=== PATIENT | male | born 1945 | race Caucasian/White ===

== ENCOUNTER 2017-05-21 06:48 | Day surgery (SDC) | payer OTHER ==
[~2017-05-21] VITALS: Ht 172.7 cm; Wt 96.3 kg
[~2017-05-21 06:48] MED LIST: ASPI-516 CHEW; HYDR12.56 PO; LISI40TA PO; MULT-65 PO; OMEP20TA93 PO; TOPI25TA7 PO
[2017-05-21] MEDS ORDERED: IOHEXOL 350 MG/ML 50 ML BTL (for Cath Lab) OTHER ONE (06:49)
[2017-05-21 07:30] VITALS: BP 128/73; PULSE 61; RESP 18; TEMP 98; O2SAT 98
[2017-05-21] MEDS ORDERED: CLOP75TA PO (07:42)
[2017-05-21] MEDS ORDERED: METO25TA3 PO (07:42)
[2017-05-21] MEDS ORDERED: ATOR40TA16 PO (07:42)
[2017-05-21] MEDS ORDERED: ASPI-147 PO (07:42)
[2017-05-21] MEDS ORDERED: AMLO10TA2 PO (07:42)
[2017-05-21] MEDS ORDERED: NS 1000P @30 MLS/HR (KVO) IV SCH (07:45)
[2017-05-21 08:09] LABS: AUTOMATED NEUTROPHIL # 4.7 TH/MM3 (1.8-7.7); BASOPHIL # 0.1 TH/MM3 (0-0.2); BASOPHIL % 0.9 % (0.0-2.0); EOSINOPHIL # 0.2 TH/MM3 (0-0.4); EOSINOPHIL % 3.2 % (0.0-4.0); HEMATOCRIT 45.6 % (39.0-51.0); HEMOGLOBIN 15.2 GM/DL (13.0-17.0); LYMPH % 21.7 % (9.0-44.0); LYMPHOCYTE # 1.6 TH/MM3 (1.0-4.8); MEAN CORPUSCULAR HEMOGLOBIN 29.4 PG (27.0-34.0); MEAN CORPUSCULAR HGB CONC 33.5 % (32.0-36.0); MEAN PLATELET VOLUME 8.7 FL (7.0-11.0); MONOCYTE # 0.7 TH/MM3 (0-0.9); NEUT % 64.2 % (16.0-70.0); PLATELET COUNT 222 TH/MM3 (150-450); RED BLOOD COUNT 5.18 MIL/MM3 (4.50-5.90); RED CELL DISTRIBUTION WIDTH 14.6 % (11.6-17.2); WHITE BLOOD COUNT 7.3 TH/MM3 (4.0-11.0)
[2017-05-21] MEDS ORDERED: HEPARIN-NS/PF FLUSH BAG 2,000 ML IV FLUSH ONE (08:16)
[2017-05-21] MEDS ORDERED: NITROGLYCERIN INJ 5 ML ONE (08:17)
[2017-05-21] MEDS ORDERED: HEPARIN SODIUM - IV 10,000 UNITS/10 ML VIAL ONE (08:17)
[2017-05-21] MEDS ORDERED: MIDAZOLAM HCL 2 MG/2 ML VIAL ONE (08:17)
[2017-05-21] MEDS ORDERED: VERAPAMIL HCL 5 MG/2 ML VIAL ONE (08:17)
[2017-05-21 08:24] LABS: PROTHROMBIN TIME - PATIENT 10.2 SEC (9.8-11.6)
[2017-05-21 08:31] LABS: CALCIUM 8.6 MG/DL (8.5-10.1); CREATININE 0.89 MG/DL (0.60-1.30)
--- NOTE | 2017-05-21 09:11 | CATHPROC ---
[facility] HIS Report Study Information Study Number Admission Scheduled Start Study Start [id number] May 21 2017 6:48AM 05/21/2017 May 21 2017 8:10AM [place] [facility] Cardiac Catheterization Admit Source Facility Department Other [facility] - [facility] Closer Physician and Clinical Staff Initial Vineet Dailey Cyber Security Specialist Amaris Dickey,RN Recorder Jenny Billings ,RT(R) Scrub Harleen Atkinson,RT(R) Procedures Performed Procedure Location (Site) Vessel Name Coronary Angiograms LCA Left Coronary Coronary Angiograms RCA Right Coronary L Heart Cath Equipment Time Advisor Advocate Angel Co Founder Description Size Mfg Part Number Used/Scraped TRANSDUCER, TRUWAVE [id number] 08:23 MACK NORIEGA * Used W/STOCKCOCK *[id number] *[id number] 08:23 [employer] PACK, CCL CUSTOM * Used *[id number] 08:23 [employer] SUPPORT, ARTERIAL ADULT [id number] *[id number] Used [id number] 08:33 [employer] JR 4.0 DXTERITY CATHETER FR 5 Used *[id number] BAND, RADIAL COMPRESSION TR [id number] 08:56 [employer] MEDICAL 29CM Used LARGE 29 *[id number] 08:23 [employer] MEDICAL WIRE, EXCHANGE 260CM 3MMJ 260CM Used *[id number] 08:23 NAMIC MANIFOLD, 4 PORT * Used *[id number] 08:23 [employer] OMNIPAQUE, 350 MG, 150ML 150ML [id number] Used [id number] 08:23 [employer] BLANKET,WARM AIR CCL * Used *[id number] SHEATH, FR6 TRANSRADIAL RM*[id number] 08:23 [employer] FR 6 Used SLENDER 10CM *[id number] Equipment Model, Serial, Lot Number and Expiration Data Description Model Number Serial Number Lot Number Expiration Date JR 4.0 DXTERITY CATHETER [id number] 01-10-2020 History: Current Medications Medication Dosage/Unit Route Frequency Last Date/Time Taken ASA LISINOPRIL PLAVIX Prilosec Statins (any) History: Allergies Allergy Reaction tramadol HYPOTENSION History: Risk Factors Family History of Hypertension Dyslipidemia Previous SC Previous Heart Failure Premature CAD Yes Yes No No No Prior Valve Prior PCI Prior CABG Surgery No No No Cerebrovascular Peripheral Artery Chronic Lung On Dialysis Diabetes Disease Disease Disease No Yes No No No History: Stress Tests Stress or Imaging Studies Performed No History: Other Disease Selection Items CAD Gerd HTN History: Other Current Smoker No Labs Hgb (g/dl) Hct (%) RBC (MIL/MM3) WBC (l/cumm) Platelets (thousands) 11.60-17.00 35.00-51.00 4.00-5.90 4.00-11.00 150.00-450.00 15.2 45.6 5.1 7.3 222 Glucose (mg/dl) BUN (mg/dl) Creatinine (mg/dl) BUN:Creatinine (1:x) 74.00-106.00 7.00-18.00 0.50-1.30 10.00-20.00 95 17 0.9 18.9 Na (meq/l) K (meq/l) Cl (meq/l) CO2 (mmol/L) Ca (mg/dl) 136.00-145.00 3.50-5.10 98.00-107.00 21.00-32.00 8.50-10.10 140 4.1 107 28 8.6 PT (sec) PTT (sec) INR (PTT:PT) 9.80-11.60 24.30-30.10 0.90-1.10 10.2 25.2 1 CPK-MB (ng/ML) 0.50-3.60 Not Drawn Medication Medication Total Dose (Bolus/Oral) Medication Total Dosage/Unit 1% XYLOCAINE 5 mL FENTANYL 25 mcg RADIAL COCKTAIL 5 mL (Bolus) VERSED 0.5 mg Medications (Bolus/Oral) Medication Time Given Dosage/Unit Administered By Reason VERSED 05/21/2017 8:44:38 AM 0.5 mg Amaris Dickey 0.5 mg VERSED given in lab by Amaris Dickey, ERICKA in Left Antecubital via Peripheral IV. Ordered by Vineet Rivera 1% XYLOCAINE 05/21/2017 8:44:49 AM 5 mL Vineet Galicia 5 mL 1% XYLOCAINE given in lab by Vineet Galicia in Right Radial via Subcutaneous. Ordered by Vineet Cormier FENTANYL 05/21/2017 8:45:52 AM 25 mcg Amaris Dickey 25 mcg FENTANYL given in lab by Amaris Dickey, RN in Left Antecubital via Peripheral IV. Ordered by Vineet Galicia Ntg 200mcg Verapamil 2.5mg Heparin RADIAL COCKTAIL 05/21/2017 8:46:11 AM 5 mL (Bolus) Vineet Galicia 2500U 5 mL (Bolus) RADIAL COCKTAIL given in lab by Vineet Galicia in Right Radial via Radial. Using [S olution Name]. Ordered by Vineet Galicia Reason: Ntg 200mcg Verapamil 2.5mg Heparin 3800U. Medication (Drip) Medication Time Given Dosage/Unit Concentration/Unit Diluent (ml) Solution IV Solutions 05/21/2017 8:40:05 AM 0 mL (IV) 500 NaCl .9 IV Solutions given in lab by Amaris Dickey RN in Left Antecubital via Peripheral IV. Pump/Drip Dom w = 20 ml/hr using NaCl .9. Ordered by Vineet Galicia Initial Case Assessment Cardiovascular HR NIBP Chest Pain 70 154/88 0 Edema Present Skin color Skin None Normal Warm Dry Circulatory - Right Pulses Dorsalis Pedis Femoral 3 3 Scale (0,1,2,3,4,d) Circulatory - Left Pulses Dorsalis Pedis Femoral 3 3 Scale (0,1,2,3,4,d) Neurological State Oriented to time-place- Alert Moves all extremities person Respiration - General Respiration Rate SpO2 (%) (B/min) 18 100 Final Case Assessment Cardiovascular HR NIBP Chest Pain 71 116/64 0 Edema Present Skin color Skin None Normal Warm Dry Circulatory - Right Pulses Dorsalis Pedis Femoral Radial 3 3 3 Scale (0,1,2,3,4,d) Circulatory - Left Pulses Dorsalis Pedis Femoral Radial 3 3 Scale (0,1,2,3,4,d) Neurological State Oriented to time-place- Alert Moves all extremities person Respiration - General Respiration Rate SpO2 (%) (B/min) 14 96 Chronological Log Time Study Chronological Log 8:09:47 Patient arrived via Bed. 8:09:48 Patient Name, D.O.B, / Armband Verified By R.N. 8:09:48 Consent signed by the physician and the patient and verified by the [facility] staff. 8:09:49 Verbal Stimulation=2 Physical Stimulation=2 Airway=2 Respiration=2 TOTAL=8. (0=absent, 1=li mited, 2=present) 8:09:53 Allens test performed on the right radial and ulnar artery. Positive. 8:09:57 Patient has been NPO for More than 6Hrs. 8:09:59 Skin Breakdown- rash on right arm 8:10:00 Patient Warmer Placed on the Table. 8:10:02 Ramon Prominences Protected 8:10:03 A # 20 IV was noted in the Antecubital (left). Grade = 0 8:10:06 History and physical on the chart or being dictated. Assessment: Initial Case, HR=70 BPM, DIXB=115/88 mmhg, Chest Pain=0, Edema=None, Color=Normal, Skin = Warm, Dry Right Pulses: Christ Ped=3, Femoral=3 8:10:07 Left Pulses: Christ Ped=3, Femoral=3 Neurological: State=Alert, Ox3, MCDOWELL Respiration: Resp=18 B/min, OyT5=425 % Vitals capture started with the following parameters, Patient=Adult, Interval=5 min, Initial Pr venuyn=630 mmHg, 8:14:24 Deflation Rate=5 mmHg, Cuff placed on Left Arm 8:15:39 QZAQ=993/88 mmhg, MrX4=947.0 %, Pain=0, Noreen=8, Soria=2 8:20:03 HR=70 bpm, JJPY=059/82 mmhg, CeU2=667.0 %, Resp=10 B/min, Pain=0, Noreen=8, Soria=2 8:25:02 HR=81 bpm, REWW=265/80 mmhg, IhC1=541.0 %, Resp=18 B/min, Pain=0, Noreen=8, Soria=2 8:26:01 Reference ECG taken 8:27:00 Right Radial and groin(s) prepped with 2% chlorhexidine, and draped after a 3 min. waiting t silvino. 8:29:50 Pressure channel 1 zeroed. 8:30:01 HR=71 bpm, IOTB=076/82 mmhg, SpO2=98.0 %, Resp=8 B/min, Pain=0, Noreen=8, Soria=2 8:35:00 HR=73 bpm, ZNRR=122/84 mmhg, SpO2=99.0 %, Resp=4 B/min, Pain=0, Noreen=8, Soria=2 8:39:01 MD arrived. 8:39:59 HR=74 bpm, NUMF=577/80 mmhg, SpO2=99.0 %, Resp=14 B/min, Pain=0, Noreen=8, Soria=2 IV Solutions given in lab by Amaris Dickey, RN in Left Antecubital via Peripheral IV. Pump/Dri p Flow = 20 ml/hr using 8:40:05 NaCl .9. Ordered by Vineet Galicia. Time Out. Correct patient, correct procedure, correct physician, power injector not loaded with contrast with surgical 8:43:51 team present. Time Out Concurred by MD and individual staff in procedure. 8:44:26 Case Start 0.5 mg VERSED given in lab by Amaris Dickey, RN in Left Antecubital via Peripheral IV. Ordered by Vineet Galicia 8:44:38 G. 5 mL 1% XYLOCAINE given in lab by Vineet Galicia in Right Radial via Subcutaneous. Ordered by Grayson 8:44:49 Vineet Caceres 8:45:02 HR=72 bpm, IKCD=638/73 mmhg, SpO2=99.0 %, Resp=18 B/min, Pain=0, Noreen=8, Soria=2 8:45:27 Access site was Right Radial Artery. A SHEATH, FR6 TRANSRADIAL SLENDER 10CM FR 6 was advanced into the Radial (right) using the Viniciusu chelsi 8:45:39 technique. 25 mcg FENTANYL given in lab by Amaris Dcikey, RN in Left Antecubital via Peripheral IV. Order ed by Grayson 8:45:52 Vineet Zepeda. 5 mL (Bolus) RADIAL COCKTAIL given in lab by Vineet Galciia in Right Radial via Radial. Usi ng [Solution Name]. 8:46:11 Ordered by Vineet Galicia. Reason: Ntg 200mcg Verapamil 2.5mg Heparin 3800U. A JR 4.0 DXTERITY CATHETER FR 5 was advanced over a wire. OMNIPAQUE, 350 MG, 150ML 150ML was use d for 8:46:53 injections. Recorded Pressure: LV, HR=72, Condition=Condition 1 8:48:28 (Left Ventricle) LV 103/5/10 Recorded Pressure: LV, Ao, HR=77, Condition=Condition 1 8:48:38 (Left Ventricle) LV 101/3/11, (Aorta) Ao 95/54/73 8:50:07 HR=70 bpm, GXTP=993/60 mmhg, SpO2=92.0 %, Resp=12 B/min, Pain=0, Noreen=8, Soria=2 8:50:16 The RCA was injected and visualized at various angles. OMNIPAQUE, 350 MG, 150ML 150ML used. 8:51:07 Catheter was removed A JL 3.5 INFINITI CATHETER FR 5 was advanced over a wire. OMNIPAQUE, 350 MG, 150ML 150ML was use d for 8:51:16 injections. 8:53:44 The LCA was injected and visualized at various angles. OMNIPAQUE, 350 MG, 150ML 150ML used. 8:55:00 HR=66 bpm, RYFU=858/64 mmhg, SpO2=92.0 %, Resp=13 B/min, Pain=0, Noreen=8, Soria=2 8:55:57 Catheter was removed Radial Compression Device Used. 9 mLs of air placed in BAND, RADIAL COMPRESSION TR LARGE 29 29CM . Affected 8:56:37 hand 96 % O2 saturation. 8:57:50 Case End Assessment: Final Case, HR=71 BPM, NWLS=038/64 mmhg, Chest Pain=0, Edema=None, Color=Normal, Ski n = Warm, Dry Right Pulses: Christ Ped=3, Femoral=3, Radial=3 8:57:54 Left Pulses: Christ Ped=3, Femoral=3 Neurological: State=Alert, Ox3, MCDOWELL Respiration: Resp=14 B/min, SpO2=96 % 8:57:55 Catheter(s) removed without difficulty 8:58:00 No case complications noted. 8:58:02 Cine recording checked. 8:58:04 Bedside Report will be given. 8:58:14 Contrast Scanned 8:58:29 A Left Heart Cath was performed. 8:59:59 HR=69 bpm, UIVG=320/65 mmhg, SpO2=96.0 %, Resp=14 B/min, Pain=0, Noreen=8, Soria=2 9:04:36 Vitals capture stopped. 9:04:46 [facility] - Contrast Media Used In Study Contrast Total Opened (mL) Total Used (mL) Total Wasted (mL) Omnipaque 30 30 0 End Study - Maximum Contrast Load Max Contrast Load (mL) 518.4 End Study - Radiation Exposure Fluoro Time (minutes) 2.5 End Study - Sheaths Sheaths Pulled By Sheath Hold Time (min) Vineet Galicia End Study - Patient Disposition Complications Transferred To Interventional Outcome No Outpatient Bed No attempt made
[2017-05-21] MEDS ORDERED: SODIUM CHLORIDE 0.9% FLUSH 10 ML FLUSH IV FLUSH PRN (09:15)
[2017-05-21] MEDS ORDERED: MISC INFORMATION XX ONE (09:15)
--- NOTE | 2017-05-21 15:43 | MA ---
cc: VINEET KIRKPATRICK DO DATE: May 21, 2017 PROCEDURE Left heart catheterization, coronary angiogram. Moderate sedation 15 minutes PREPROCEDURE DIAGNOSIS Nonsustained ventricular tachycardia on Holter monitor. POSTPROCEDURE DIAGNOSIS Mild coronary artery disease. MEDICATIONS Versed 0.5 mg. Fentanyl 25 mcg. Heparin 3800 units. Nitro 200 mcg. Verapamil 2.5 mg. CONTRAST USED 30 cc Fluoroscopy 2.5 minutes Moderate sedation 15 minutes ESTIMATED BLOOD LOSS 10 cc PROCEDURAL SUMMARY Faustino Gloria is a pleasant 71-year-old male who sees my partner Dr. Rees in the office and who was recommended cardiac catheterization due to nonsustained ventricular tachycardia on Holter monitor. Risks, benefits and alternatives were explained to the patient and he consented as such. He was brought to lab and prepped in the usual sterile fashion. Right radial artery was accessed using a modified Seldinger technique and placement of a 5/6 Cypriot sheath. This was easily aspirated and flushed. A JR-4 was advanced over a J-wire to the ascending aorta and across the aortic valve for measurement of left ventricular pressure. This was pulled back across the aortic valve showing no significant gradient of aortic stenosis. JR-4 was used for selective angiography of the right coronary artery system. This was exchanged out for a JL-3.5 which was used for selective angiography of the left coronary artery system. JL-3.5 was removed over a J-wire. A radial band was placed over the arteriotomy site for hemostasis. The patient left the laborer sawmill cardiovascularly stable. FINDINGS Left main: Normal size vessel with adequate reflux and no significant disease. It trifurcates into an LAD, ramus and circumflex. LAD: Normal-size vessel with mild luminal irregularities throughout the midportion but no significant disease. It gives off three diagonals with no significant disease. Ramus: Normal-size vessel which splits into an medial and lateral branch with no significant disease. Left circumflex: Normal size vessel with mild luminal irregularities but no significant disease noted. It gives off two obtuse marginals with no significant disease. RCA: Bhtbwbmh-dl-yghoa size vessel with mild tortuosity throughout the proximal portion. Distally it is a dominant vessel. It gives off a PDA with two PLVs with no significant disease. LVEDP 11. IMPRESSION 1. Wide complex tachycardia on Holter monitor. 2. Mild coronary artery disease as above. RECOMMENDATIONS 1. Mr. Babe appears to have no significant coronary artery disease causing his wide complex tachycardia. 2. He will follow up with Dr. Rees as previously scheduled for further considerations. Thank you for allowing me to see Faustino Gloria. If there are any questions, please do not hesitate to call. Vineet Kirkpatrick DO VGP/TAHMINA /2:43 PM /3:11 PM
--- NOTE | 2017-05-21 20:36 | EKG ---
Date Performed: 05/21/2017 Time Performed: 07:48:46 PTAGE: 71 years EKG: Sinus rhythm . Normal ECG PREVIOUS TRACING : 06/11/2007 09.36 Since the prior tracing, there has been no significant ward DOCTOR: Dick Haines Interpretating Date/Time 05/21/2017 20:35:22
[2017-05-21] MEDS ORDERED: SODIUM CHLORIDE 0.9% FLUSH 10 ML FLUSH IV FLUSH SCH (21:00)
== END 2017-05-21 12:24 | disposition home or self-care (01) ==
LOC: HDOC 06:48 → HDIC 06:52 → HDOC 12:24
PROVIDERS: ATTEND Nuclear Medicine Nuclear Cardiology
DX: I25.10 Atherosclerotic heart disease of native coronary artery without angina pectoris (principal); I47.2 Ventricular tachycardia; G45.9 Transient cerebral ischemic attack, unspecified; I77.9 Disorder of arteries and arterioles, unspecified; I11.9 Hypertensive heart disease without heart failure; E78.5 Hyperlipidemia, unspecified; E66.9 Obesity, unspecified; Z68.32 Body mass index [BMI] 32.0-32.9, adult
CPT/HCPCS: 80048; 85025; 85610; 85730; 93005; 93458; 99152; C1769; C1893; J1644; J2250; J3010; J7030; Q9967